=== PATIENT | male | born 1980 | race Caucasian/White ===

== ENCOUNTER 2021-03-25 18:42 | Emergency (ER) | payer OTHER ==
--- NOTE | 2021-03-25 18:50 | ERPHSYRPT ---
- History of Present Illness Time Seen by Provider: 03/25/21 18:50 Source: patient Exam Limitations: no limitations Physician History: This is a 40-year-old white male patient who is diabetic, has hypertension and elevated cholesterol and presents with few day history of right lower leg ache and numbness sensation. Patient denies history of any DVTs or clotting problems. He did not travel recently long distances in a car or plane. He is concerned about a blood clot in his right lower extremity Occurred: days ago (3) Quality: constant, aching, other (Numbness) Severity of Pain-Max: mild Severity of Pain-Current: mild Lower Extremities Pain: leg: right (Lower leg) Modifying Factors: Improves With: nothing Associated Symptoms: none Allergies/Adverse Reactions: flu vaccine 2010- *RETIRED-07/04/12 [flu vaccine [id number] (4 yr +)] Allergy (Intermediate, Verified 03/25/21 19:30) Penicillins Allergy (Mild, Verified 03/25/21 19:30) Home Medications: Atorvastatin Calcium [Lipitor] 40 mg PO HS 03/25/21 [History] Metformin HCl 500 mg [Glucophage 500 MG] 1,000 mg PO BID 03/25/21 [History] Verapamil HCl [Verapamil ER] 1 tab PO DAILY 03/25/21 [History] Hx Tetanus, Diphtheria Vaccination/Date Given: Yes Hx Influenza Vaccination/Date Given: No Hx Pneumococcal Vaccination/Date Given: No Travel Risk - International Travel Have you traveled outside of the country in past 3 weeks: No - Coronavirus Screening Are you exhibiting any of the following symptoms?: No Close contact with a COVID-19 positive Pt in past 14-21 Days: No - Review of Systems Constitutional: No Symptoms Eyes: No Symptoms Ears, Nose, & Throat: No Symptoms Respiratory: No Symptoms Cardiac: No Symptoms Abdominal/Gastrointestinal: No Symptoms Genitourinary Symptoms: No Symptoms Musculoskeletal: Other (Medicine aching right lower leg below the knee) Neurological: Parasthesia (Right lower leg below the knee) Psychological: No Symptoms Endocrine: No Symptoms Hematologic/Lymphatic: No Symptoms Immunological/Allergic: No Symptoms All Other Systems: Reviewed and Negative - Past Medical History Pertinent Past Medical History: Yes Neurological History: No Pertinent History ENT History: No Pertinent History Cardiac History: High Cholesterol, Hypertension Respiratory History: No Pertinent History Endocrine Medical History: No Pertinent History Musculoskeletal History: No Pertinent History GI Medical History: No Pertinent History History: No Pertinent History Psycho-Social History: Depression Male Reproductive Disorders: No Pertinent History - Past Surgical History Past Surgical History: Yes Other Surgical History: ADNOIDS - Social History Smoking Status: Never smoker Exposure to second hand smoke: Yes Drug Use: none Patient Lives Alone: No - Nursing Vital Signs Nursing Vital Signs: Initial Vital Signs Temperature 98 F 03/25/21 19:33 Pulse Rate 108 H 03/25/21 19:33 Respiratory Rate 18 03/25/21 19:33 Blood Pressure 145/98 03/25/21 19:33 O2 Sat by Pulse Oximetry 99 03/25/21 19:33 Pain Scale Pain Intensity 0 - Physical Exam General Appearance: no apparent distress, alert, anxiety Eyes, Ears, Nose, Throat Exam: normal ENT inspection, moist mucous membranes Neck Exam: normal inspection, non-tender, supple, full range of motion Cardiovascular/Respiratory Exam: chest non-tender, no respiratory distress Gastrointestinal/Abdominal Exam: non-tender Back Exam: normal inspection, normal range of motion, No CVA tenderness, No vertebral tenderness Hips Exam: bilateral: non-tender, normal inspection, normal range of motion, no evidence of injury Legs Exam: right leg: soft tissue tenderness (Lower leg below the knee), left leg: non-tender, bilateral leg: normal inspection, normal range of motion, no evidence of injury Knees Exam: bilateral knee: non-tender, normal inspection, normal range of motion, no evidence of injury Ankle Exam: bilateral ankle: non-tender, normal inspection, normal range of motion, no evidence of injury Foot Exam: bilateral foot: non-tender, normal inspection, normal range of motion, no evidence of injury Neuro/Tendon Exam: normal sensation, normal motor functions, normal tendon functions Mental Status Exam: alert, oriented x 3, cooperative Skin Exam: normal color, warm, dry SpO2 Interpretation: normal O2 Delivery: Room Air - Course Nursing assessment & vital signs reviewed: Yes Ordered Tests: Active Orders 24 hr Category Date Time Status D-DIMER QUANTITATIVE Stat Lab 03/25/21 20:42 Completed Lab/Rad Data: Laboratory Results 03/25/21 Range/Units 20:42 D-Dimer < 215 L (215-500) ng/mL - Progress Progress: unchanged Counseled pt/family regarding: lab results, diagnosis, need for follow-up - Departure Departure Disposition: Home Clinical Impression: Right leg numbness Condition: Stable Critical Care Time: No Referrals: EMANUEL LUA MD [Primary Care Provider] - Follow up/PCP as directed Additional Instructions: Take all your medication as prescribed. Follow-up with primary care provider for further management of your leg discomfort/numbness
[2021-03-25 21:32] VITALS: BP 148/83; PULSE 100; O2SAT 98
== END 2021-03-25 21:41 | disposition home or self-care (01) ==
LOC: ED 18:42
DX: R20.0 Anesthesia of skin (principal); M79.661 Pain in right lower leg; E11.9 Type 2 diabetes mellitus without complications; Z79.84 Long term (current) use of oral hypoglycemic drugs; E78.5 Hyperlipidemia, unspecified; I10 Essential (primary) hypertension
CPT/HCPCS: 36415; 85379; 99283

== ENCOUNTER 2023-01-07 18:51 | Emergency (ER) | payer OTHER ==
[2023-01-07 19:13] VITALS: TEMP 97.8
[2023-01-07] MEDS ORDERED: Sodium Chloride 0.9% 1000 ML 1,000 ML IV STA (19:38)
[2023-01-07] MEDS ORDERED: MORPHINE SULFATE 2 MG INJ IV ONE (19:38)
--- NOTE | 2023-01-07 19:49 | ERPHSYRPT ---
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 Pt reports he had this happen a couple of weeks ago and was told it is likely an aura from migraine, did have a headache after this happened the last time. Triage Nursing Assessment: Pt alert and oriented x3. Respirations easy/nonlabored. Skin w/p/d. Ambulated to ED cot without difficulty. Corrected right eye 20/70, left eye 20/30. No redness/discharge from right eye noted. As finishing up triage pt states his eye was getting better as was the neck/spine pain but was starting to get a headache. Physician History: 42yo m presents w/ complaints of about 1hr of blurry vision that is almost resolved. Pt states he was playing w/ his son when he bent over and stood up, at which point he started to have blurry vision in his right eye that he states was "wavy and streaky." He reports a ALVARADO that started directly after and states the ALVARADO is still bothering him. He denies any recent trauma to the eye or head. He reports associated neck and midback pain. He states his ALVARADO is on the back of his head and worse on the left side. Pt denies cp, soa, n/v/abdominal pain. Timing/Duration: today, hour(s) (2), improved Quality: sharpness Head Pain Location: occipital, parietal (left sided) Severity of Pain-Max: moderate Severity of Pain-Current: moderate Recent Head Trauma: no recent headache/trauma Associated Symptoms: stiff neck, visual disturbance Previous symptoms: same symptoms as today, recently seen, other (pt has f/u w/ his PCP and an grid maker regarding similar episode several weeks ago) Allergies/Adverse Reactions: flu vaccine 2010- *RETIRED-07/04/12 [flu vaccine [id number] (4 yr +)] Allergy (Intermediate, Verified 01/07/23 18:59) Penicillins Allergy (Mild, Verified 01/07/23 18:59) Home Medications: Atorvastatin Calcium [Lipitor] 40 mg PO HS 03/25/21 [History] Metformin HCl 500 mg [Glucophage 500 MG] 1,000 mg PO BID 03/25/21 [History] Verapamil HCl [Verapamil ER] 120 tab PO DAILY 03/25/21 [History] Hx Tetanus, Diphtheria Vaccination/Date Given: No Hx Influenza Vaccination/Date Given: No Hx Pneumococcal Vaccination/Date Given: No Travel Risk - International Travel Have you traveled outside of the country in past 3 weeks: No - Coronavirus Screening Are you exhibiting any of the following symptoms?: No Close contact with a COVID-19 positive Pt in past 14-21 Days: No - Vaccine Status Have you recieved a Covid-19 vaccination: No - Review of Systems Constitutional: No Fever, No Chills Eyes: Vision Changes Respiratory: No Cough, No Dyspnea Cardiac: No Chest Pain, No Edema, No Syncope Abdominal/Gastrointestinal: No Abdominal Pain, No Nausea, No Vomiting, No Diarrhea Neurological: No Dizziness, No Focal Weakness, No Sensory Changes - Past Medical History Pertinent Past Medical History: Yes Neurological History: No Pertinent History ENT History: No Pertinent History Cardiac History: High Cholesterol, Hypertension Respiratory History: No Pertinent History Endocrine Medical History: Diabetes Type II Musculoskeletal History: Osteoarthritis GI Medical History: No Pertinent History History: No Pertinent History Psycho-Social History: Depression Male Reproductive Disorders: No Pertinent History Other Medical History: ER VISIT NOTES HX OF DEPRESSION BUT NO MEDS - Past Surgical History Past Surgical History: Yes Neuro Surgical History: No Pertinent History Cardiac: No Pertinent History Respiratory: No Pertinent History Gastrointestinal: No Pertinent History Genitourinary: No Pertinent History Musculoskeletal: No Pertinent History Male Surgical History: No Pertinent History Other Surgical History: ADNOIDS - Social History Smoking Status: Former smoker Exposure to second hand smoke: Yes Drug Use: none Patient Lives Alone: No - Nursing Vital Signs Nursing Vital Signs: Initial Vital Signs Temperature 97.8 F 01/07/23 18:59 Pulse Rate 96 H 01/07/23 18:59 Respiratory Rate 16 01/07/23 18:59 Blood Pressure 165/99 01/07/23 18:59 O2 Sat by Pulse Oximetry 99 01/07/23 18:59 Pain Scale Pain Intensity 5 - Physical Exam General Appearance: no apparent distress Eye Exam: PERRL/EOMI, eyes nml inspection, other (ophthalmoscopic exam - no obvious retinal hemorrhages or vascular injury) Ears, Nose, Throat Exam: normal ENT inspection, moist mucous membranes Neck Exam: normal inspection (negative brudzinski), supple, full range of motion, other, No meningismus Respiratory Exam: normal breath sounds, lungs clear Cardiovascular Exam: regular rate/rhythm, normal heart sounds Gastrointestinal/Abdominal Exam: soft, No tenderness, No distention Back Exam: normal inspection (mild paraspinal musculature hypertonicity in thoracic spine, no midline tenderness of Tspine or Cspine), normal range of motion Mental Status Exam: alert, oriented x 3, cooperative tv technician Exam: normal hearing (Cranial Nerves grossly intact; sensation intact diffusely, strength equal and appropriate in all extremities), normal speech, PERRL Coordination/Gait Exam: normal finger to nose Motor/Sensory Exam: no motor deficit, no sensory deficit, no pronator drift SpO2: 99 - Course Nursing assessment & vital signs reviewed: Yes Ordered Tests: Active Orders 24 hr Category Date Time Status IV Insertion STAT Care 01/07/23 19:38 Active CERVICAL SPINE WO CONTRAST [CT] Stat Exams 01/07/23 19:40 Completed HEAD WITHOUT CONTRAST [CT] Stat Exams 01/07/23 19:38 Completed THORACIC SPINE W/O CONTRAST [CT] Stat Exams 01/07/23 19:40 Completed BMP Stat Lab 01/07/23 20:20 Completed CBC W DIFF Stat Lab 01/07/23 20:20 Completed Medication Summary Discontinued Medications Generic Name Dose Route Start Last Admin Trade Name Rasheed PRN Reason Stop Dose Admin Acetaminophen 975 mg 01/07/23 20:15 01/07/23 20:19 Acetaminophen 325 Mg Tablet PO 01/07/23 20:16 975 mg STAT ONE Administration Acetaminophen Confirm 01/07/23 20:16 Acetaminophen 500 Mg Tablet Administered 01/07/23 20:17 Dose 1,000 mg .ROUTE .STK-MED ONE Acetaminophen Confirm 01/07/23 20:19 Acetaminophen 325 Mg Tablet Administered 01/07/23 20:20 Dose 975 mg .ROUTE .STK-MED ONE Droperidol 1.25 mg 01/07/23 19:38 01/07/23 21:32 Droperidol 5 Mg/2 Ml Vial IV 01/07/23 19:39 Not Given STAT ONE Sodium Chloride 1,000 mls @ 999 mls/hr 01/07/23 19:38 01/07/23 21:31 Sodium Chloride 0.9% 1000 Ml IV 01/07/23 20:38 Infused .Q1H1M STA Infusion Sodium Chloride Confirm 01/07/23 20:16 Sodium Chloride 0.9% 1000 Ml Administered 01/07/23 20:17 Dose 1,000 mls @ ud .ROUTE .STK-MED ONE Ketorolac Tromethamine 30 mg 01/07/23 21:52 01/07/23 21:54 Ketorolac Tromethamine 30 Mg/Ml Inj IV 01/07/23 21:53 30 mg STAT ONE Administration Ketorolac Tromethamine Confirm 01/07/23 21:53 Ketorolac Tromethamine 30 Mg/Ml Inj Administered 01/07/23 21:54 Dose 30 mg .ROUTE .STK-MED ONE Morphine Sulfate 2 mg 01/07/23 19:38 01/07/23 21:09 Morphine Sulfate 2 Mg/Ml Inj IV 01/07/23 19:39 Not Given STAT ONE Lab/Rad Data: Laboratory Result Diagrams 01/07/23 20:20 01/07/23 20:20 Laboratory Results 01/07/23 01/07/23 Range/Units 20:20 20:20 WBC 7.5 (4.0-10.5) x10^3/uL RBC 5.43 (4.1-5.6) x10^6/uL Hgb 16.4 (12.5-18.0) g/dL Hct 50.3 H (42-50) % MCV 92.6 (78-100) fL MCH 30.2 (26-32) pg MCHC 32.6 (32-36) g/dL RDW 12.3 (11.5-14.0) % Plt Count 190 (150-450) x10^3/uL MPV 9.5 (7.5-11.0) fL Gran % 63.6 (36.0-66.0) % Immature Gran % (Auto) 0.3 (0.00-0.4) % Nucleat RBC Rel Count 0.0 (0.00-0.1) % Eos # (Auto) 0.07 (0-0.5) x10^3/uL Immature Gran # (Auto) 0.02 (0.00-0.03) x10^3u/L Absolute Lymphs (auto) 2.08 (1.0-4.6) x10^3/uL Absolute Monos (auto) 0.50 (0.0-1.3) x10^3/uL Absolute Nucleated RBC 0.00 (0.00-0.01) x10^3u/L Lymphocytes % 27.8 (24.0-44.0) % Monocytes % 6.7 (0.0-12.0) % Eosinophils % 0.9 (0.00-5.0) % Basophils % 0.7 (0.0-0.4) % Absolute Granulocytes 4.77 (1.4-6.9) x10^3/uL Basophils # 0.05 (0-0.4) x10^3/uL Sodium 139 (137-145) mmol/L Potassium 4.2 (3.5-5.1) mmol/L Chloride 103 (98-107) mmol/L Carbon Dioxide 29 (22-30) mmol/L Anion Gap 10.6 (5-15) MEQ/L BUN 30 H (9-20) mg/dL Creatinine 1.12 (0.66-1.25) mg/dL Estimated GFR > 60.0 ML/MIN Glucose 95 (74-106) mg/dL Calcium 9.2 (8.4-10.2) mg/dL - Progress Progress: improved Air Movement: good Progress Note: 01/07/23 22:50 pt re-examined after dose of toradol, reports feeling much better, still has mild ALVARADO but vision has returned to baseline and back pain resolved plan to dc home w/ close pcp f/u instructed to take otc ibuprofen as needed for ALVARADO/pain Blood Culture(s) Obtained: No Antibiotics given: No Will see patient in: office Counseled pt/family regarding: lab results, diagnosis, need for follow-up, rad results Medical Desision Making - Discussion of managment Reviewed:: Test results, Need for additional workup Agreed on:: need for follow-up Will see patient: In office - Diagnostic Testing Diagnostic test were ordered, analyzed, and reviewed by me: Yes Radiological Interpretation: Reviewed by me, Teleradiologist Report - Risk of complications Minimal Risk: Minimal risk of morbidity - Departure Departure Disposition: Home Clinical Impression: Migraine with aura and without status migrainosus Qualifiers: Intractability: not intractable Qualified Code(s): G43.109 - Migraine with aura, not intractable, without status migrainosus Condition: Stable Critical Care Time: No Referrals: JOHN GONCALVES [Primary Care Provider] - Follow up/PCP as directed Additional Instructions: f/u w/ pcp at earliest convenience OTC ibuprofen/acetaminophen for pain relief
[2023-01-07] MEDS ORDERED: TYLENOL 325 MG PO ONE (20:15)
[2023-01-07] MEDS ORDERED: Sodium Chloride 0.9% 1000 ML 1,000 ML ONE (20:16)
[2023-01-07] MEDS ORDERED: TYLENOL EXTRA STRENGTH 500 MG ONE (20:16)
[2023-01-07] MEDS ORDERED: TYLENOL 325 MG ONE (20:19)
[2023-01-07 20:24] LABS: Absolute Neutrophil Ct (ANC) 4.77 x10^3/uL (1.4-6.9); BASOPHIL % 0.7 % (0.0-0.4); Basophil (Absolute #) 0.05 x10^3/uL (0-0.4); Eosinophil % 0.9 % (0.00-5.0); Eosinophil (Absolute #) 0.07 x10^3/uL (0-0.5); Hematocrit 50.3 % (42-50); Hemoglobin 16.4 g/dL (12.5-18.0); IMMATURE GRAN # 0.02 x10^3u/L (0.00-0.03); IMMATURE GRAN % 0.3 % (0.00-0.4); Lymphocyte (Absolute #) 2.08 x10^3/uL (1.0-4.6); Lymphocytes % 27.8 % (24.0-44.0); Mean Cell Volume 92.6 fL (78-100); Mean Corpuscular Hemoglobin 30.2 pg (26-32); Mean Corpuscular Hgb Concent. 32.6 g/dL (32-36); Mean Platelet Volume 9.5 fL (7.5-11.0); Monocytes % 6.7 % (0.0-12.0); Neutrophil % 63.6 % (36.0-66.0); Platelet Count 190 x10^3/uL (150-450); Red Blood Count 5.43 x10^6/uL (4.1-5.6); Red Cell Distribution Width 12.3 % (11.5-14.0); White Blood Count 7.5 x10^3/uL (4.0-10.5)
[2023-01-07 20:25] VITALS: RESP 16
--- NOTE | 2023-01-07 20:38 | XRAY ---
CLINICAL HISTORY:neck pain COMPARISON:None. TECHNIQUE:Thin axial CT of the cervical spine was performed with sagittal and coronal reconstructions without contrast. FINDINGS: The physiological cervical lordosis is reversed. The vertebral bodies are normal in height. No lytic or sclerotic bone lesion. Linear calcifications are seen at the posterior aspect of the C4 and C5 vertebral bodies, abutting the ventral thecal sac, could represent ligamentous calcifications. The craniovertebral measures are unremarkable. Normal disc height is noted. Level by Level analysis: C2-C3: No central canal or neuroforaminal stenosis. C3-C4: No central canal or neuroforaminal stenosis. C4-C5: No central canal or neuroforaminal stenosis. C5-C6: No central canal or neuroforaminal stenosis. C6-C7: No central canal or neuroforaminal stenosis. A round metallic structure measuring 5.4 mm is seen in the subcutaneous region of the left mastoid region. There is an incidental note of a 5.3 mm partially calcified nodule in the right lung apex. IMPRESSION: 1. No acute osseous findings. 2. Linear calcifications at the posterior aspect of the C4 and C5 vertebral bodies, abutting the ventral thecal sac, could represent ligamentous calcifications. 3. A round metallic structure measuring 5.4 mm in the subcutaneous region of the left mastoid region. Clinical correlation is suggested. 4. Incidental note of a 5.3 mm partially calcified nodule in the right lung apex. Electronically Signed by: Nicko Ramos MD. (01/07/2023 19:36:21 FLUX CORE WELDER)
[2023-01-07 20:40] LABS: ANION GAP 10.6 MEQ/L (5-15); BLOOD UREA NITROGEN 30 mg/dL (9-20); CHLORIDE 103 mmol/L (98-107); Calcium 9.2 mg/dL (8.4-10.2); Carbon Dioxide 29 mmol/L (22-30); Creatinine 1 1.12 mg/dL (0.66-1.25); EST GLOMERULAR FILTRATION RATE > 60.0 ML/MIN; Glucose 95 mg/dL (74-106); Potassium 4.2 mmol/L (3.5-5.1); SODIUM 139 mmol/L (137-145)
--- NOTE | 2023-01-07 20:43 | XRAY ---
CLINICAL HISTORY:blurry vision ALVARADO COMPARISON:12/10/2022. TECHNIQUE:An axial non-contrast CT scan of the brain was performed from the skull base to the high parietal region. FINDINGS: No evidence of acute intracranial hemorrhage or major vascular territory infarct. The cortical sulci, fissures, basal cisterns, and ventricles are normal in size and configuration. Merrill-white matter differentiation is maintained. No midline shifts or deformity. Normal CT appearance of the posterior fossa structures namely the cerebellar hemispheres, brainstem, and cerebellar peduncles. The IACs are unremarkable. The cerebello-pontine angles are clear. The pituitary gland, the pineal gland, and the optic chiasm are unremarkable. The osseous structures in the skull base are unremarkable. No definite calvarium fractures. A convex-shaped soft tissue density is again seen in the left maxillary sinus, to consider mucus retention cyst versus polyp. The rest of the scanned paranasal sinuses are clear. IMPRESSION: 1. No evidence of acute intracranial hemorrhage or major vascular territory infarct. 2. Convex-shaped soft tissue density in the left maxillary sinus, to consider mucus retention cyst versus polyp. 3. No significant change from the prior study. Electronically Signed by: Nicko Ramos MD. (01/07/2023 19:43:16 MANAGER CCU)
--- NOTE | 2023-01-07 20:47 | XRAY ---
CLINICAL HISTORY:neck pain COMPARISON:None. TECHNIQUE:Multiple axial images of the CT thoracic spine without contrast were submitted in bone window. FINDINGS: Relative anterior wedging is seen at T8 to T11 vertebrae with degenerative disc disease and spondylosis in the form of disc space narrowing, marginal osteophytes, multiple schmorl's node, and vacuum phenomena are seen. Anterior marginal sclerosis of the T11 vertebral body is noted Maintained vertebral alignment is seen. Maintained curvature of the thoracic spine is seen. No definite acute fracture line or subluxation is seen. No paravertebral soft tissue swelling is seen. A 5.7 mm lobulated calcified nodule is seen in the right lung apex. Mediastinal calcifications are seen likely of calcified nodes sequel of old granulomatous infection. IMPRESSION: 1. No acute bony abnormality. No evidence of fracture. 2. Relative anterior wedging is seen at T8 to T11 vertebrae with degenerative disc disease and spondylosis. For further MRI assessment if clinically indicated. 3. A 5.7 mm lobulated calcified nodule in the right lung apex. Electronically Signed by: Nicko Ramos MD. (01/07/2023 19:46:02 REIMBURSEMENT LIAISON)
[2023-01-07] MEDS ORDERED: TORAdol 30 mg Injection IV ONE (21:52)
[2023-01-07] MEDS ORDERED: TORAdol 30 mg Injection ONE (21:53)
[2023-01-07 22:30] VITALS: BP 125/73; PULSE 88
[2023-01-07 22:54] VITALS: O2SAT 99
== END 2023-01-07 23:04 | disposition home or self-care (01) ==
LOC: ED 18:51
DX: G43.109 Migraine with aura, not intractable, without status migrainosus (principal); H53.8 Other visual disturbances; E78.5 Hyperlipidemia, unspecified; I10 Essential (primary) hypertension; E11.9 Type 2 diabetes mellitus without complications; Z79.84 Long term (current) use of oral hypoglycemic drugs; Z79.899 Other long term (current) drug therapy; Z28.310 Unvaccinated for COVID-19
CPT/HCPCS: 36000; 36415; 70450; 72125; 72128; 80048; 85025; 96360; 96374; 99284; J1885; A9270-GY